=== PATIENT | female | born 1955 | race Caucasian/White ===

== ENCOUNTER → 2016-08-13 | Outpatient (CLI) | payer OTHER ==
[~2016-08-13] MED LIST: ACET1CAP18 PO; ACET325S8 PO; ATEN25TA PO; B-COCAP9 PO; BUSP10TA PO; CETI10 PO; CITA20TA4 PO; FLUT50SP EACH NARE; GABA300C5 PO; LIPI40TA PO; LISI-515 PO; LOVA20TA PO; OMEP20TA PO; TYLE500T PO; [UNRECOGNIZED DRUG - OTHER]
[2016-08-13 13:07] LABS: HDL CHOLESTEROL 68.5 MG/DL (40.0-60.0)
== END ==
LOC: CLAB 11:49
PROVIDERS: ATTEND Family Medicine
DX: E78.5 Hyperlipidemia, unspecified (principal)
CPT/HCPCS: 36415; 80061

== ENCOUNTER → 2016-08-18 | Outpatient (CLI) | payer OTHER ==
[2016-08-18 13:30] LABS: BICARBONATE 24.9 MEQ/L (21.0-32.0); POTASSIUM 4.5 MEQ/L (3.5-5.1)
== END ==
LOC: CLAB 12:12
PROVIDERS: ATTEND Family Medicine
DX: N19 Unspecified kidney failure (principal)
CPT/HCPCS: 36415; 80048

== ENCOUNTER → 2016-09-18 | Outpatient (CLI) | payer OTHER ==
[~2016-09-18] MED LIST changes: -ACET325S8 PO; -LOVA20TA PO; -TYLE500T PO
[2016-09-18 13:18] LABS: BICARBONATE 22.2 MEQ/L (21.0-32.0); POTASSIUM 4.5 MEQ/L (3.5-5.1)
== END ==
LOC: CLAB 12:30
PROVIDERS: ATTEND Family Medicine
DX: N19 Unspecified kidney failure (principal)
CPT/HCPCS: 36415; 80048

== ENCOUNTER 2016-12-23 11:56 | Emergency (ER) | payer MEDICARE, OTHER ==
[~2016-12-23] VITALS: Ht 157.5 cm; Wt 70.0 kg
[~2016-12-23 11:56] MED LIST changes: -ATEN25TA PO; +METO25TA3 PO
[2016-12-23 11:59] VITALS: BP 170/74; PULSE 63; RESP 12; TEMP 98.3; O2SAT 98
[2016-12-23] MEDS ORDERED: blood pressure pill (12:21)
[2016-12-23] MEDS ORDERED: ATEN25TA PO (12:21)
[2016-12-23] MEDS ORDERED: IBUP-232 PO (12:30)
[2016-12-23] MEDS ORDERED: METHOCARBAMOL 500 MG TAB PO ONE (12:30)
[2016-12-23] MEDS ORDERED: IBUPROFEN 600 MG TAB PO ONE (12:30)
[2016-12-23] MEDS ORDERED: ROBA500T PO (12:30)
--- NOTE | 2016-12-23 12:31 | PD ---
HPI Chief Complaint: Back/ Neck Pain or Injury Time Seen by Provider: 12:28 Travel History International Travel<30 days: No Contact w/Intl Traveler<30days: No History of Present Illness HPI 61-year-old female presents to emergency Department with complaint of right upper back pain after being hit in the back with a computer on wheels while working 3 days ago here at [place]. Denies paresthesias, loss of sensation, decreased range of motion of decreased strength all extremities. Has been taking Tylenol for symptom management. Symptoms are mild in severity. Pain is aggravated with movement of the right arm and palpation. Has no medical complaints. No known allergies. No other modifying factors or associated signs and symptoms. PFSH Past Medical History High Cholesterol: Yes Hypertension: Yes Tetanus Vaccination: Unknown Influenza Vaccination: Yes Past Surgical History Section: Yes Hysterectomy: Yes Neurologic Surgery: Yes (cervical fusion) Social History Alcohol Use: No Tobacco Use: No Substance Use: No Allergies-Medications (Allergen,Severity, Reaction): Coded Allergies: No Known Allergies (Unverified , 12/23/16) Reported Meds & Prescriptions Reported Meds & Active Scripts Active Ibuprofen 600 Mg Tab 600 Mg PO Q6H PRN Robaxin (Methocarbamol) 500 Mg Tab 500 Mg PO QID PRN Citalopram (Citalopram Hydrobromide) 20 Mg Tab 20 Mg PO DAILY Fluticasone Nasal Kosse 50 Mcg/Act Naspr 50 Mcg EACH NARE BID 50 mcg/spray Lipitor (Atorvastatin Calcium) 40 Mg Tab 40 Mg PO HS Reported [blood pressure pill] Atenolol 25 Mg Tab 25 Mg PO DAILY Review of Systems Except as stated in HPI: all other systems reviewed are Neg Physical Exam Narrative GENERAL: Well-nourished, well-developed female patient, in no acute distress SKIN: Warm and dry. HEAD: Atraumatic. Normocephalic. EYES: Pupils equal and round. No scleral icterus. No injection or drainage. ENT: Mucosa pink and moist. Airway patent. NECK: Trachea midline. CARDIOVASCULAR: Regular rate. RESPIRATORY: No accessory muscle use. GASTROINTESTINAL: Rounded. MUSCULOSKELETAL: Bilateral upper extremities with full range of motion and strength. No obvious deformities. No clubbing. No cyanosis. No edema. BACK: No point tenderness on palpation of the thoracic spine. Reproducible tenderness to the area of the right upper back in between the spine and the scapula; there is no erythema, edema, ecchymosis noted to the area. Patient ambulatory in the room with normal gait. NEUROLOGICAL: Awake and alert. Oriented 3. No obvious cranial nerve deficits. Motor grossly within normal limits. Normal speech. PSYCHIATRIC: Appropriate mood and affect; insight and judgment normal. Data Data Last Documented VS Vital Signs Date Time Temp Pulse Resp B/P (MAP) Pulse Ox O2 Delivery O2 Flow Rate FiO2 12/23/16 11:59 98.3 63 12 170/74 (106) 98 Orders Orders Ibuprofen (Motrin) (12/23/16 12:30) Methocarbamol (Robaxin) (12/23/16 12:30) [facility] Medical Decision Making Medical Screen Exam Complete: Yes Emergency Medical Condition: Yes Medical Record Reviewed: Yes Differential Diagnosis Contusion of back, trapezius muscle strain, medical clearance Narrative Course 61-year-old female physical exam and history of present illness consistent with contusion of the right upper back. She is [employer] employee and the injury occurred at work 3 days ago. No midline tenderness on palpation of the thoracic spine. Ibuprofen Robaxin administered in the ER. Ibuprofen or Robaxin prescribed for home. Instructed patient to follow up with primary care provider. Patient verbalizes understanding and agreement with treatment plan. Patient is medically cleared and stable for discharge. Discussed reasons to return to the emergency department. Patient agrees with treatment plan. The patients vital signs are stable and the patient is stable for outpatient follow- up and treatment. Patient discharged home, stable and in no acute distress. Diagnosis Primary Impression: Contusion of right back wall of thorax Qualified Codes: S20.221A - Contusion of right back wall of thorax, initial encounter Referrals: [facility] ([facility] Human Resources Primary Care Physician Patient Instructions: Contusion in Adults (ED), General Instructions, Muscle Spasm (ED) Departure Forms: Tests/Procedures, Work Release Enter return to work date: Dec 25, 2016 Additional Instructions: Tylenol or ibuprofen as directed and as needed for pain Robaxin as prescribed and as needed for muscle spasms Heating pad and/or ice to affected area to reduce pain Avoid aggravating activities; increase activity as tolerated Follow-up with primary care provider Return to emergency department immediately with worsening of symptoms Med/Other Pt SpecificInfo: Prescription(s) given Scripts Ibuprofen (Ibuprofen) 600 Mg Tab 600 MG PO Q6H Y for PAIN, #30 TAB 0 Refills Prov: Shirley Cabral 12/23/16 Methocarbamol (Robaxin) 500 Mg Tab 500 MG PO QID Y for MUSCLE SPASM, #30 TAB 0 Refills Prov: Shirley Cabral 12/23/16 Disposition: 01 DISCHARGE HOME Condition: Stable Shirley Cabral Dec 23, 2016 12:31
[2016-12-23] MEDS ORDERED: HYDROmorphone HCL PF 2 MG/ML VIAL ONE (13:12)
[2016-12-23] MEDS ORDERED: SUGAMMADEX SODIUM 200 MG/2 ML VIAL IV PUSH ONE ×2 (13:12)
== END 2016-12-23 13:09 | disposition home or self-care (01) ==
LOC: NEPK 11:56
DX: S20.221A Contusion of right back wall of thorax, initial encounter (principal); E78.00 Pure hypercholesterolemia, unspecified; I10 Essential (primary) hypertension; W22.8XXA Striking against or struck by other objects, initial encounter; Y99.0 Civilian activity done for income or pay; Y92.239 Unspecified place in hospital as the place of occurrence of the external cause; Z79.899 Other long term (current) drug therapy
CPT/HCPCS: 99283; J1170; J3010